=== PATIENT | male | born 1995 | race Caucasian/White ===

== ENCOUNTER → 2019-02-27 | Outpatient (CLI) | payer OTHER ==
[~2019-02-27] MED LIST: ACCUTANE PO; ADDERALL 15 MG15 MG PO; SINGULAIR10 MG PO
--- NOTE | 2019-02-27 16:52 | Diagnostic Imaging Report ---
Testicular ultrasound, with Doppler examination. History: <Pain>. Comparison: <None available>. Discussion: Evaluation of the scrotum was performed in the transverse and longitudinal planes. Color Doppler and spectral wave form analysis was performed bilaterally. The testes are normal in size and echogenicity bilaterally, measuring 5.2 x 2.4 x 3.2 cm on the right and 5.2 x 2.3 x 3.0 cm on the left. There is no evidence of a mass. There is a small amount of fluid on the left side. Palpable area in the left scrotum superior to the testicle represents a small varicocele. Normal and symmetrical flow is present within both testes. Right epididymis measures 1.4 x 0.9 x 0.9 cm and the left measures 1.1 x 0.7 x 0.8 cm. There is a small right epididymal cyst measuring 4 mm. Left inguinal lymph node is noted. IMPRESSION: 1. No evidence of an intratesticular mass. 2. Normal flow to both testes. 3. Superior to the left testicle in the area of palpable abnormality is a small varicocele. Signed by: Dr. Herrera Reyna DO on 02/27/2019 4:49 PM
== END ==
LOC: US 13:51
PROVIDERS: ATTEND Surgery
DX: N50.89 Other specified disorders of the male genital organs (principal); I86.1 Scrotal varices
CPT/HCPCS: 76870; 93976

== ENCOUNTER 2021-02-02 22:41 | Emergency (ER) | payer BC ==
[~2021-02-02] VITALS: Ht 172.7 cm; Wt 90.7 kg
[2021-02-02] MEDS ORDERED: ONDANSETRON HCL INJ 2MG/ML 2ML 2 MG/ML VIAL IV STA (23:03)
[2021-02-02] MEDS ORDERED: KETOROLAC TROMETHAMINE 30 MG/ML VIAL IV STA (23:03)
[2021-02-02 23:18] LABS: BASOPHILS # (AUTO) 0.1 (0.0-0.1); BASOPHILS % 0.6 % (0.0-1.0); EOSINOPHILS # (AUTO) 0.4 (0.0-0.4); EOSINOPHILS % 3.4 % (0.0-6.0); HEMATOCRIT 41.8 % (38.2-49.6); HEMOGLOBIN 14.3 g/dL (14.0-18.0); LYMPHOCYTES # (AUTO) 4.3 (1.0-3.2); LYMPHOCYTES % 37.9 % (18.0-39.1); MEAN CORPUSCULAR HGB CONC 34.2 g/dL (31-35); MEAN CORPUSCULAR VOLUME 90.5 fL (81-99); MONOCYTES # (AUTO) 0.9 (0.2-0.8); MONOCYTES % 8.3 % (4.4-11.3); NEUTROPHILS # (AUTO) 5.6 (2.1-6.9); NEUTROPHILS % 49.4 % (38.7-80.0); PLATELET COUNT 421 x10e3/uL (140-360); RED BLOOD COUNT 4.62 x10e6/uL (4.3-5.7); RED CELL DISTRIBUTION WIDTH 12.2 % (11.7-14.4)
[2021-02-02 23:19] LABS: CLARITY,URINE CLEAR (CLEAR); COLOR,URINE YELLOW (YELLOW); KETONES,URINE TRACE (NEGATIVE); LEUKOCYTE ESTERASE ,URINE NEGATIVE (NEGATIVE); NITRITE,URINE NEGATIVE (NEGATIVE); PROTEIN,URINE DIPSTICK NEGATIVE (NEGATIVE); URINE UROBILINOGEN 0.2 mg/dL (0.2 - 1)
[2021-02-02 23:28] LABS: BACTERIA,URINE FEW /HPF; EPITHELIAL CELLS,URINE RARE /LPF; MUCUS,URINE FEW (RARE); WBC,URINE (MAN) 0-5 /HPF (0-5)
[2021-02-02 23:35] LABS: ANION GAP 17.1 mmol/L (8-16); BLOOD UREA NITROGEN 19 mg/dL (7-26); BUN/CREATININE RATIO 15 (6-25); CALCIUM 9.9 mg/dL (8.4-10.2); CARBON DIOXIDE 24 mmol/L (22-29); CHLORIDE 100 mmol/L (98-107); CREATININE, SERUM 1.23 mg/dL (0.72-1.25); EST GLOMERULAR FILTRATION RATE > 60 ML/MIN (60-); GLUCOSE 100 mg/dL (74-118); POTASSIUM 4.1 mmol/L (3.5-5.1); SODIUM 137 mmol/L (136-145)
[2021-02-03 01:08] VITALS: BP 134/94
== END 2021-02-03 01:00 | disposition home or self-care (01) ==
LOC: ER 23:00
DX: N20.0 Calculus of kidney (principal); N13.4 Hydroureter
CPT/HCPCS: 36415; 74176; 80048; 81001; 85025; 99284; J1885; J2405

== ENCOUNTER → 2021-12-16 | Outpatient (CLI) | payer BC | LOC: MRI 11:00 | PROVIDERS: ATTEND Orthopaedic Surgery | DX: M67.813 Other specified disorders of tendon, right shoulder (principal) ==

== ENCOUNTER → 2022-12-08 | Outpatient (CLI) | payer BC ==
[~2022-12-08] MED LIST changes: +DIATRIZOATE MEGL/DIATRIZOA SOD 30 ML BTL PO ONE; +IOPAMIDOL 370 MG/ML 100 ML INFUS..BTL INJ ONE
== END ==
LOC: CT 14:32
PROVIDERS: ATTEND Internal Medicine Gastroenterology
DX: R10.32 Left lower quadrant pain (principal)
CPT/HCPCS: 74177; Q9963; Q9967